=== PATIENT | female | born 1995 | race Caucasian/White ===

== ENCOUNTER 2017-07-31 23:04 | Inpatient (IN) | payer BC, OTHER ==
[~2017-07-31] VITALS: Ht 167.6 cm; Wt 56.7 kg
[2017-07-31] MEDS ORDERED: DICYCLOMINE HCL 20 MG TABLET PO PRN (23:30)
[2017-07-31] MEDS ORDERED: MIRALAX 17 GM POWD.PACK PO PRN (23:30)
[2017-07-31] MEDS ORDERED: ONDANSETRON 4 MG/2 ML VIAL IM PRN (23:30)
[2017-07-31] MEDS ORDERED: ACETAMINOPHEN 325 MG TABLET PO PRN (23:30)
[2017-07-31] MEDS ORDERED: diphenhydrAMINE 50 MG CAPSULE PO PRN (23:30)
[2017-07-31] MEDS ORDERED: LORAZEPAM 1 MG TABLET PO PRN (23:30)
[2017-07-31] MEDS ORDERED: LORAZEPAM 2 MG/1 ML VIAL IM PRN (23:30)
[2017-07-31] MEDS ORDERED: MAGNESIUM HYDROXIDE 30 ML LIQUID UDC PO PRN (23:30)
[2017-07-31] MEDS ORDERED: METHOCARBAMOL 750 MG TABLET PO PRN (23:30)
[2017-07-31] MEDS ORDERED: CLONIDINE HCL 0.1 MG TABLET PO PRN (23:30)
[2017-07-31] MEDS ORDERED: LOPERAMIDE HCL 2 MG CAPSULE PO PRN ×2 (23:30)
[2017-07-31] MEDS ORDERED: ONDANSETRON ODT 4 MG TAB.RAPDIS SL PRN (23:30)
[2017-07-31] MEDS ORDERED: MAG HYDROX/AL HYDROX/SIMETH 30 ML LIQUID UDC PO PRN (23:30)
[2017-07-31] MEDS ORDERED: BUPRENORPHINE HCL 2 MG TAB.SUBL SL PRN (23:30)
--- NOTE | 2017-08-01 00:30 | NUR ---
PRE-ADMISSION NOTE Patient is a 21-year-old female, seen at intake mildly intoxicated alert and oriented to person and place. Patient denies SOB but reports feeling anxious and complains of headache. Patient was informed about admission policies of the unit. Patient is able to respond to questions although she is not completely coherent at this time. Patient is ambulatory with a steady gait. Vital signs taken and as follows: BP: 142/68, P: 84, RR: 18, O2: 95%, Temp: 97.5, Pain: 6/10. Patient stated that she did not feel comfortable answering any questions at intake "because of all the people here." Patient was unable to produce urine for UA at intake. Patient was sent to lab for blood draw. Will continue with admission upon patient's arrival on the unit.
[2017-08-01 00:53] LABS: BASOPHILS % (AUTO) 0.5 % (0.0-2.0); EOSINOPHILS # (AUTO) 0.6 K/uL (0.0-0.7); EOSINOPHILS % (AUTO) 7.7 % (0.0-7.0); HEMATOCRIT 35.8 % (31.2-41.9); HEMOGLOBIN 12.8 g/dL (10.9-14.3); LYMPHOCYTES # (AUTO) 1.9 K/uL (20.0-40.0); LYMPHOCYTES % (AUTO) 26.5 % (20.5-74.5); MEAN CORPUSCULAR HEMOGLOBIN 33.8 uug (24.7-32.8); MEAN CORPUSCULAR HGB CONC 36 g/dL (32.3-35.6); MEAN CORPUSCULAR VOLUME 94.1 fL (75.5-95.3); MONOCYTES # (AUTO) 0.7 K/uL (2.0-10.0); MONOCYTES % (AUTO) 9.8 % (0-11); NEUTROPHILS % (AUTO) 55.5 % (31.5-64.5); PLATELET COUNT (AUTO) 237 K/uL (179-408); WHITE BLOOD COUNT (AUTO) 7.2 K/uL (3.8-11.8)
[2017-08-01 01:05] LABS: ETHANOL < 3 MG/DL (0-0)
[2017-08-01 01:09] LABS: ALANINE AMINOTRANSFERASE 26 U/L (14-59); ALKALINE PHOSPHATASE 76 U/L (50-136); AMYLASE 27 U/L (25-115); ASPARTATE AMINOTRANSFERASE 34 U/L (15-37); BILIRUBIN,TOTAL 0.5 mg/dL (0.2-1.0); CARBON DIOXIDE 26 mmol/L (21-32); CHLORIDE 100 mmol/L (98-107); GLUCOSE 84 mg/dL (74-106); MAGNESIUM 1.9 mg/dL (1.8-2.4); POTASSIUM 3.5 mmol/L (3.5-5.1); TOTAL PROTEIN, SERUM 7.8 g/dL (6.4-8.2); UREA NITROGEN, BLOOD 9 mg/dL (7-18)
[2017-08-01] MEDS: IBUPROFEN 600 MG TABLET PO PRN ×2 (02:00→12:14)
--- NOTE | 2017-08-01 02:00 | NUR ---
PRN MOTRIN Patient reports headache of 6/10 on pain scale. PRN Motrin 600 mg given PO. Safety measures in place, bed locked in low position, side rails up x2, call light within reach. Will reassess in one hour.
[2017-08-01 02:05] LABS: *URINE HCG, QUAL NEGATIVE (NEGATIVE)
[2017-08-01] MEDS ORDERED: IBUPROFEN 600 MG TABLET ONE (02:14)
[2017-08-01 02:15] LABS: *AMPHETAMINE, URINE NEGATIVE (NEGATIVE); *BARBITURATE, URINE NEGATIVE (NEGATIVE); *CANNABINOID, URINE POSITIVE (NEGATIVE); *COCCAINE, URINE POSITIVE (NEGATIVE); *OPIATE, URINE POSITIVE (NEGATIVE); *PHENCYCLIDINE SCREEN,URINE POSITIVE (NEGATIVE)
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
[2017-08-01] MEDS: LORAZEPAM 1 MG TABLET PO PRN ×2 (02:23→18:19)
--- NOTE | 2017-08-01 02:23 | NUR ---
PRN ATIVAN FOR CIWA >12 Patient has a CIWA score of 13; PRN Ativan 2mg given PO. Patient's respirations are even and unlabored, 16/min. Safety measures in place, bed locked in low position, side rails up x2, call light within reach. Will reassess in one hour.
[2017-08-01] MEDS ORDERED: LORAZEPAM 1 MG TABLET ONE (02:38)
--- NOTE | 2017-08-01 03:00 | NUR ---
PRN MOTRIN REASSESSMENT Patient states that her headache has improved; PRN Motrin effective. Safety measures in place, will continue to monitor.
--- NOTE | 2017-08-01 03:23 | NUR ---
PRN ATIVAN REASSESSMENT Patient is resting in bed with eyes closed, respirations even and unlabored, 15/min. Safety measures in place, will continue to monitor.
[2017-08-01 04:00] VITALS: BP 113/56
--- NOTE | 2017-08-01 04:00 | NUR ---
CIWA AND COWS DEFERRED 4AM COWS and CIWA deferred due to patient asleep; to be assessed and scored while patient is awake per protocol. Patient's respirations are even and unlabored, 15/min. Safety measures in place, call light within reach. Will continue to monitor.
[2017-08-01] MEDS ORDERED: [UNRECOGNIZED DRUG - CODE] TP (04:15)
[2017-08-01] MEDS ORDERED: NORG1TAB11 PO (04:15)
[2017-08-01] MEDS ORDERED: CHLO473M3 PO (04:15)
[2017-08-01] MEDS ORDERED: ESCI10TA PO (04:15)
[2017-08-01] MEDS ORDERED: RANI150C4 PO (04:15)
[2017-08-01] MEDS ORDERED: HYDR28CR TP (04:15)
[2017-08-01] MEDS ORDERED: DIPH25TA22 PO (04:15)
[2017-08-01] MEDS ORDERED: D ME PO (04:15)
[2017-08-01] MEDS ORDERED: GUAI1TBM19 PO (04:15)
[2017-08-01] MEDS ORDERED: MOME17SP BNOSTRILS (04:15)
[2017-08-01] MEDS ORDERED: GENT3.5O7 OP (04:15)
[2017-08-01] MEDS ORDERED: LEVO5TAB13 PO (04:15)
--- NOTE | 2017-08-01 07:10 | NUR ---
END OF SHIFT Patient is a 21-year-old female admitted on 08/01/17 for Cocaine, Xanax, and opiate withdrawals, as well as ETOH (wine) and Cannabis dependence. Patient is FULL code status, on a regular diet, with allergies to cat dander and certain grass/bushes/trees, according to patient. NKA to drugs/meds. Patient has past medical history of anxiety and depression with past surgical history of wisdom teeth extraction. Patient's skin is dry and intact. Pt denies history of seizure. Patient received PRN Motrin for headache and PRN Ativan for CIWA >12; both were effective. Patient slept for 5 hours, total intake of 1,300 mL, void x2, stool x0. Last COWS score was 7, last CIWA was 13 upon arrival on the unit. Patient is on fall and seizure precautions. No taper has been ordered yet. Safety measures in place, bed locked in low position, side rails up x2, call light within reach. Will endorse to day shift.
--- NOTE | 2017-08-01 07:15 | NUR ---
Start of Shift Checkering Machine Adjuster receives report on 21 year old female admitted to [facility] on 08/01/17 for poly-substance abuse detoxification. Pt reports an extensive history of multiple drugs used. Pt has NKDA, is a full code and eats a regular diet. Pt reports a PMH of depression. No current taper started. Last COWS 7, CIWA 13 at 0100. Pt currently resting in bed with eyes closed, even rise and fall of chest noted. Bed in low position, wheels locked, side rails up x2 and all safety measures in place. Will continue to monitor, support and encourage according to plan of care.
[2017-08-01 08:15] VITALS: BP 103/53
[2017-08-01] MEDS ORDERED: TUBERCULIN,PURIF.PROT.DERIV. 5 TU/0.1 ML TEST ID ONE (09:00)
--- NOTE | 2017-08-01 09:59 | NUR ---
0900 Meds Pt admitted to the unit this am. Currently resting and difficult to arouse. Lethargic and somnolent. MD aware of pt's condition and in agreement with non-administration of pt's medication. Will continue to monitor, support and encourage according to plan of care.
[2017-08-01] MEDS: FOLIC ACID 1 MG TABLET PO SCH (10:26)
[2017-08-01] MEDS: MULTIVITAMINS,THERAPEUTIC TABLET PO SCH (10:26)
[2017-08-01] MEDS: THIAMINE HCL 100 MG TABLET PO SCH (10:26)
[2017-08-01] MEDS ORDERED: BECL8.7A6 IH (11:14)
[2017-08-01] MEDS ORDERED: ALBU18HF2 INH (11:15)
--- NOTE | 2017-08-01 12:14 | NUR ---
PRN Motrin Pt requesting something for pain relief, due to headache with pain at 5/10. Non-pharmacological interventions attempted. Administered medication to order with pt tolerating well. Will continue to monitor, support and encourage according to plan of care.
[2017-08-01 12:41] VITALS: BP 121/58
--- NOTE | 2017-08-01 13:15 | NUR ---
Erick Re-Assessment Pt resting comfortably with eyes closed and lying on bed. Even rise and fall of chest noted. Will continue to monitor, support and encourage according to plan of care.
--- NOTE | 2017-08-01 13:20 | NUR ---
Non-Administer Proposal Engineer non-administered ordered medication from the NOC, that was recorded as PRN medication.
[2017-08-01] MEDS ORDERED: NICOTINE POLACRILEX 4 MG GUM-PK OF TEN BC PRN (13:30)
[2017-08-01] MEDS ORDERED: ALBUTEROL INH PRN (13:30)
[2017-08-01] MEDS ORDERED: PATIENT MAY USE OWN MED- MD OK PO SCH (13:30)
[2017-08-01] MEDS ORDERED: BENZOCAINE/MENTH/CETYLPYRD LOZENGE MM PRN (13:30)
[2017-08-01] MEDS ORDERED: NICOTINE 14 MG/24HR PATCH TD PRN (13:30)
[2017-08-01] MEDS: QVAR 80 MCG INH SCH (14:14)
--- NOTE | 2017-08-01 14:40 | NUR ---
Strep/Flu Swab Motorcycle Technician performed necessary swabs obtaining specimens for the lab. Motorcycle Technician delivered 2 red top samples labeled "Strep", with the appropriate swabs obtained from the laboratory. Motorcycle Technician also delivered 1 red top tub, labeled, "Flu", also with the appropriate supplied swab. Motorcycle Technician bought the samples to the laboratory and handed them off at the desk. Will continue to monitor, support and encourage according to plan of care.
[2017-08-01] MEDS: FAMOTIDINE 20 MG TABLET PO SCH ×2 (14:45→20:56)
[2017-08-01] MEDS: MOMETASONE FUROATE NASAL 17 GM SPRAY.PUMP NS SCH (16:41)
--- NOTE | 2017-08-01 16:41 | NUR ---
1445/1500 Non-Administer Medications held due to pt's somnolents. Dr. Morales notified and aware. Will continue to monitor, support and encourage according to plan of care.
[2017-08-01 16:56] VITALS: BP 101/57
--- NOTE | 2017-08-01 18:19 | NUR ---
PRN Ativan Pt is tearful and anxious, requesting something for anxiety. CIWA perfomred and medicated as per orders. Will continue to monitor, support and encourage according to plan of care.
--- NOTE | 2017-08-01 19:07 | NUR ---
End of Shift Civilian Technician provides report on 21 year old female admitted to [facility] on 08/01/17 for poly-substance abuse detoxification. Pt reports an extensive history of multiple drugs used. Pt admits to ETOH, Cocaine, Benzodiazepine, LSD and some opiate usage, but nothing is daily. Pt has NKDA, is a full code and eats a regular diet. Pt reports a PMH of depression. No current taper started. Last COWS 9, CIWA 13 at 1814. Pt rested most of the day, but became anxious and tearful at 181 and was medicated with 2mg Ativan. Pt currently resting in bed with eyes closed, even rise and fall of chest noted. Bed in low position, wheels locked, side rails up x2 and all safety measures in place. Will continue to monitor, support and encourage according to plan of care.
--- NOTE | 2017-08-01 19:15 | NUR ---
Start of Shift Note: Patient is a 21 y.o female admitted on 07/31/17 for poly substance use. Patient has PMHx of Anxiety & Depression. No seizure history noted. Patient is on a regular diet with allergies to cat dander. Full Code status noted. Patient has no taper. PRNs available for signs & symptoms of withdrawal. Last COWS 9 CIWA 13. Pt received PRN Ativan 2mg during day shift. Patient is alert & oriented x4. No shortness of breath noted. Respiration even & unlabored. Abdomen soft & non-distended. No nausea/vomiting noted. Patient presented with chills, sweating, stuffy nose, 5/10 generalized body aches & anxiety. Slight hand tremors noted. Patient denies any hallucinations at this time. Safety precautions are in place. Bed locked in lowest position. Both side rails up. Call light within pts reach. Will continue to monitor patient.
[2017-08-01 20:00] VITALS: BP 129/84
[2017-08-01] MEDS: GABAPENTIN 300 MG CAPSULE PO SCH (20:56)
--- NOTE | 2017-08-01 20:56 | NUR ---
PRN Ativan Patient presented with mild anxiety, sweating & hand tremors. CIWA 6 noted at this time. PRN Ativan 1mg administered as ordered. Will continue to monitor patient.
--- NOTE | 2017-08-01 21:56 | NUR ---
PRN Reassessment Patient verbalized decreased in anxiety. Patient observed in bed and appears more calm. Safety measures in place. Will continue to montior patient.
[2017-08-02] VITALS: BP 97/53
[2017-08-02 04:00] VITALS: BP 95/53
--- NOTE | 2017-08-02 07:17 | NUR ---
End of Shift Note: Pt had an uneventful night. Pt still has no taper. PRN medications available for signs and symptoms of withdrawal. Patient presented with mild anxiety, barely sweating & tremors with a CIWA of 6 noted At 2000. Patient received PRN Ativan 1mg and was effective. Last CIWA is 3. Patient is stable and remains compliant with medications. Closely monitored symptoms of withdrawal. Vitals monitored closely and noted within normal limits. Patient still asleep at this time with no s/s of distress noted. Patient slept for a total of 6 hours. Fluid intake 1100ml. Encourage pt to increase fluid intake. Voided 2x with no bowel movement. Safety measures in place. Will endorse pt to day shift nurse.
--- NOTE | 2017-08-02 07:45 | NUR ---
START OF SHIFT Rcvd endorsement from ongoing nurse, client is in room, she presents with anxious mood, flat affect. She reports some anxiety, stomach cramps, and fatigue. Encourage client to increase PO fluid intake as tolerated to facilitate detox. Client is a 21 y/o female admitted to [facility] for withdrawal from multiple substances. Client reports allergy to cat dander, grass pollen, full code, regular diet. Bed in lowest/locked position, side rails x 2 up/padded. call light within reach.
[2017-08-02 08:55] VITALS: BP 106/54
[2017-08-02] MEDS ORDERED: PATIENT MAY USE OWN MED- MD OK NS SCH (09:00)
[2017-08-02] MEDS: GABAPENTIN 300 MG CAPSULE PO SCH ×2 (09:29→20:33)
[2017-08-02] MEDS: TRI SPRINTEC PO SCH (09:29)
[2017-08-02] MEDS: FOLIC ACID 1 MG TABLET PO SCH (09:29)
[2017-08-02] MEDS: MULTIVITAMINS,THERAPEUTIC TABLET PO SCH (09:29)
[2017-08-02] MEDS: FAMOTIDINE 20 MG TABLET PO SCH ×2 (09:29→20:33)
[2017-08-02] MEDS: THIAMINE HCL 100 MG TABLET PO SCH (09:29)
[2017-08-02] MEDS: LEVOCETRIZINE PO SCH (09:30)
[2017-08-02] MEDS: MOMETASONE FUROATE NASAL 17 GM SPRAY.PUMP NS SCH (09:31)
[2017-08-02] MEDS: QVAR 80 MCG INH SCH (09:32)
[2017-08-02 12:39] VITALS: BP 111/51
--- NOTE | 2017-08-02 12:40 | NUR ---
Client reports generalized body aches 5/10, she said, "I am going to rest, that usually helps." Will continue to monitor. call light within reach.
[2017-08-02 14:07] LABS: HEPATITIS B SURFACE AG Negative (Negative)
[2017-08-02] MEDS: HYDROXYZINE PAMOATE 25 MG CAPSULE PO PRN ×2 (14:28→20:33)
--- NOTE | 2017-08-02 14:28 | NUR ---
PRN Clonidine 0.1mg PO, Vistaril 25mg PO, Robaxin 750mg PO administered for irritability, anxiety, and generalized muscle pain 5/10 respectively. Call light within reach. Will continue to monitor.
--- NOTE | 2017-08-02 15:28 | NUR ---
Reassessment PRN Clonidine 0.1mg PO, Vistaril 25mg PO, Robaxin 750mg PO, client is in bed, she sounds asleep, RR 16, even, non-labored. Call light within reach.
[2017-08-02 16:55] VITALS: BP 108/58
[2017-08-02] MEDS ORDERED: DIPH50CA37 PO (17:33)
[2017-08-02] MEDS ORDERED: HYDR-3895 PO (17:33)
[2017-08-02] MEDS ORDERED: GABA-534 PO (17:33)
[2017-08-02] MEDS ORDERED: IBUP-1955 PO (17:33)
--- NOTE | 2017-08-02 19:01 | NUR ---
END OF SHIFT Client is a 21 y/o female admitted to [facility] for withdrawal from multiple substances. Client is in room, she is a/o x 4. She continues to present with depressed mood, flat affect. PRN Clonidine 0.1mg PO, Vistaril 25mg PO, Robaxin 750mg PO administered for irritability, anxiety, and generalized muscle pain 5/10 respectively, noted effective. Adequate PO fluid intake 1600mL, void x 2. Client needs encouragement to attend group therapy. Client is scheduled for discharge tomorrow to [facility]. Client reports allergy to cat dander, grass pollen, full code, regular diet. Bed in lowest/locked position, side rails x 2 up/padded. call light within reach.
--- NOTE | 2017-08-02 19:15 | NUR ---
Start of Shift Note: Patient is a 21 y.o female admitted on 07/31/17 for poly substance use. Patient has PMHx of Anxiety & Depression. No seizure history noted. Patient is on a regular diet with allergies to cat dander. Full Code status noted. Pt is scheduled to be discharge tomorrow and she is going to [facility]. PRN medications available for symptoms of withdrawal. Last COWS 3 CIWA 4. Pt received PRN Clonidine, Robaxin & Vistaril during day shift. Explained to patient plan of care for the night and verbalized understanding. Patient is alert & oriented x4. No shortness of breath noted. Respiration even & unlabored. Abdomen soft & non-distended. No nausea/vomiting noted. Patient presented with slight anxiety and barely sweating. No hand tremors noted. Patient denies any hallucinations at this time. Patient remained compliant with medications. Safety precautions are in place. Bed locked in lowest position. Both side rails up. Call light within pts reach. Will continue to monitor patient.
[2017-08-02 20:00] VITALS: BP 101/53
--- NOTE | 2017-08-02 20:33 | NUR ---
PRN Vistaril & Benadryl Patient complained that she is unable to fall asleep and reports of anxiety. PRN Benadryl & Vistaril administered as ordered. Will monitor for effectiveness of medication.
--- NOTE | 2017-08-02 21:33 | NUR ---
PRN Reassessment Patient asleep in bed at this time. Patient appears calm and comfortable. Safety measures in place. Will continue to monitor patient.
--- NOTE | 2017-08-03 06:58 | NUR ---
End of Shift Note: Pt had an uneventful night. Patient is stable and remains compliant with therapeutic plan. Pt is scheduled to be discharge today and she is going to [facility]. Last COWS 3 CIWA 2 noted at 1999. Patient received PRN Vistaril for anxiety and Benadryl for sleep and were effective. Closely monitored symptoms of withdrawal. Vitals monitored closely and noted within normal limits. Patient still asleep at this time with no s/s of distress noted. Patient slept for a total of 9 hours. Fluid intake 1000ml. Encourage pt to increase fluid intake. Voided 2x with no bowel movement. Safety measures in place. Will endorse pt to day shift nurse.
--- NOTE | 2017-08-03 07:11 | NUR ---
START OF SHIFT Rcvd endorsement from ongoing nurse. Patient is a 21 y/o female admitted to [facility] for withdrawal from multiple substances. Patient reports allergy to cat dander, grass pollen, full code, regular diet. Patient received PRN vistarel and benadryl on PM shift. Patient is asleep in bed at this time breathing even and unlabored, Bed in lowest/locked position, side rails x 2 up/padded. Last COWS 3 and CIWA 2 @2027. call light within reach.
[2017-08-03 08:00] VITALS: BP 93/48
[2017-08-03] MEDS: LEVOCETRIZINE PO SCH (08:27)
[2017-08-03] MEDS: THIAMINE HCL 100 MG TABLET PO SCH (08:27)
[2017-08-03] MEDS: TRI SPRINTEC PO SCH (08:27)
[2017-08-03] MEDS: MULTIVITAMINS,THERAPEUTIC TABLET PO SCH (08:27)
[2017-08-03] MEDS: FAMOTIDINE 20 MG TABLET PO SCH (08:27)
[2017-08-03] MEDS: GABAPENTIN 300 MG CAPSULE PO SCH (08:27)
[2017-08-03] MEDS: FOLIC ACID 1 MG TABLET PO SCH (08:28)
[2017-08-03] MEDS: QVAR 80 MCG INH SCH (08:31)
[2017-08-03] MEDS: MOMETASONE FUROATE NASAL 17 GM SPRAY.PUMP NS SCH (08:35)
--- NOTE | 2017-08-03 09:48 | NUR ---
DISCHARGE NOTE Patient is a 21-year-old female admitted on 08/01/17 at 0048 for cocaine, Xanax, and opiate withdrawals. patient had a COWS score of 2 and CIWA of 2 @0800 today 08/03/17. Vital signs are with in normal limits, LBM 08/02/17. Patient denies any SI/HI. Patient verbalized her understanding of the discharge instructions, prescriptions, medications and all belongings returned to patient. All needs addressed at this time. patient ambulated off the unit and left facility via "[facility] " transport for [facility].
== END 2017-08-03 09:48 | disposition other institution (70) | DRG 897 ==
LOC: SRC 23:10
PROVIDERS: ADMIT Internal Medicine; ATTEND Internal Medicine
PROC: HZ2ZZZZ Detoxification Services for Substance Abuse Treatment (ICD-10-PCS; principal; 2017-07-31)
DX: F10.120 Alcohol abuse with intoxication, uncomplicated (principal); F14.20 Cocaine dependence, uncomplicated; F13.10 Sedative, hypnotic or anxiolytic abuse, uncomplicated; F12.90 Cannabis use, unspecified, uncomplicated; Y90.9 Presence of alcohol in blood, level not specified; F17.210 Nicotine dependence, cigarettes, uncomplicated; F16.10 Hallucinogen abuse, uncomplicated; F32.9 Major depressive disorder, single episode, unspecified; F41.9 Anxiety disorder, unspecified; J45.20 Mild intermittent asthma, uncomplicated; J30.9 Allergic rhinitis, unspecified; Z81.1 Family history of alcohol abuse and dependence; J00 Acute nasopharyngitis [common cold]
CPT/HCPCS: 36415; 80307; 80346; 80349; 80353; 80361; 83735; 84703; 85025; 86403; 86592; 86705; 86803; 87070; 87340; 87400; 87806; A4663; G0480; J3535; Q0162; Q0163